=== PATIENT | male | born 1960 | race Caucasian/White ===

== ENCOUNTER 2020-08-08 19:29 | Emergency (ER) | payer BC, SELFPAY ==
[2020-08-08 19:37] VITALS: BP 137/85; PULSE 66; RESP 14; TEMP 36.1; O2SAT 97; BMI 25.7
[2020-08-08] MEDS: TET,DIPH,PERTUSS(ACELL),VAC/PF 0.5 ML SYRINGE IM (20:06)
--- NOTE | 2020-08-08 22:07 | ED.WOUNDLAC ---
HPI - Wound/Laceration General Chief Complaint: Wound/Laceration Stated Complaint: cut left hand Time Seen by Provider: 08/08/20 22:01 Source: patient Mode of arrival: Ambulatory Limitations: no limitations History of Present Illness HPI narrative: Patient is a 60-year-old male who presents with left hand laceration,. He can not get it to stop bleeding he is not on any antiplatelet or anticoagulation medication. It is right between his thumb and index finger. He has no numbness tingling or weakness. He is able to make an okay sign any has good sensation. Onset (ago): hour(s) Location: other (Left hand) Related Data Allergies Allergy/AdvReac Type Severity Reaction Status Date / Time Penicillins Allergy Verified 08/08/20 19:39 Review of Systems Review of Systems Narrative: GENERAL: Denies chills,fever HEENT: Denies throat pain RESPIRATORY: Denies dyspnea, cough, wheezing CARDIOVASCULAR: Denies chest pain, palpitations GASTROINTESTINAL: Denies nausea, vomiting MUSCULOSKELETAL: Denies extremity pain, injury SKIN: Laceration see HPI NEUROLOGIC: Denies weakness, dizziness, headache, numbness 8 point review of systems is negative except for those stated above and HPI Patient History Medical History Patient denies medical problems Social History Smoking Status: Unknown if ever smoked Smoking Status: Unknown if ever smoked alcohol intake frequency: holidays/special occasions only Substance Use Type: does not use Exam Initial Vital Signs Initial Vital Signs: Vital Signs Temperature 97.0 F L 08/08/20 19:37 Pulse Rate 66 08/08/20 19:37 Respiratory Rate 14 08/08/20 19:37 Blood Pressure 137/85 08/08/20 19:37 Pulse Oximetry 97 08/08/20 19:37 GENERAL: Well-appearing, well-nourished and in no acute distress. CARDIOVASCULAR: peripheral pulses in tact, cap refill <2 sec RESPIRATORY: No respiratory distress, speaks in full sentences without difficulty EXTREMITIES: Normal range of motion, no clubbing or edema. Neurovascularly intact Patient able to make okay sign with thumb and pinky sensation between 1st and 2nd finger intact NEUROLOGICAL: Cranial nerves II through XII grossly intact. Normal gait and speech. SKIN: 2 cm laceration left hand between thumb and index finger more on the dorsal side. Procedures Laceration Repair Laceration 1: Site: hand Side (If applicable): left Size (cm): 2 Description: linear Depth: simple, single layer Local Anesthetic: lidocaine 1% Amount of anesthesia used (mL): 2 Pre-repair: wound explored and irrigated extensively Skin layer closed with: nylon Size (cm): 4-0 Number of sutures: 2 Course Orders Ordered: Discontinued Medications Diphtheria/Tetanus/Acell Pertussis (Tet,Diph,Pertuss(Acell),Vac/Pf 0.5 Ml Syringe) 0.5 ml IM .ONCE ONE Stop: 08/08/20 20:01 Last Admin: 08/08/20 20:06 Dose: 0.5 ml Documented by: SHAHZAD Lidocaine HCl (Lidocaine 1% (Pf)) 2 ml SUBCUT NOW ONE Stop: 08/08/20 22:07 Last Admin: 08/08/20 22:21 Dose: 2 ml Documented by: SHAHZAD Vital Signs Vital signs: Vital Signs - 8 hr 08/08/20 19:37 08/08/20 22:26 Temperature 97.0 F L Pulse Rate 66 84 Respiratory Rate 14 20 Blood Pressure 137/85 124/84 Pulse Oximetry 97 99 Discharge Plan Departure Patient Disposition: Home Clinical Impression: Laceration Instructions: DI for Laceration Repair Activity Restrictions/Additional Instructions: 1. Have your suture removed in 5-7 days, you may go to walk-in clinic, return to the ER or call your primary care physician. 2. No soaking in water including dishes, bathtubs, Lakes, swimming pools etc 3. Signs of infection include, but not limited to, increased redness, increased swelling, increased pain, fever and purulent drainage, if the symptoms should arise, you may need an antibiotic and you should have a reevaluation either by your primary care provider or by the emergency department. Referrals: [facility] Resources [Outside]
[2020-08-08] MEDS: LIDOCAINE 1% (PF) 2 ML SUBCUT (22:21)
[2020-08-08 22:26] VITALS: BP 124/84; PULSE 84; RESP 20; O2SAT 99
== END 2020-08-08 22:26 | disposition home or self-care (01) ==
PROVIDERS: Emergency Provider Emergency Medicine
DX: S61.412A Laceration without foreign body of left hand, initial encounter (principal); W26.0XXA Contact with knife, initial encounter
CPT/HCPCS: 12001; 90471; 99283; 90715

== ENCOUNTER → 2024-09-23 13:07 | Outpatient (CLI) | payer BC, SELFPAY ==
--- NOTE | 2024-09-23 13:08 | DI.MRI.S_ITS ---
PROCEDURE: MR SHOULDER RT WO CON INDICATIONS: PAIN IN RT SHOULDER / R/O RTC TEAR TECHNIQUE: Noncontrast oblique coronal T2 fast spin echo with fat saturation, oblique sagittal T1 spin echo and T2 fast spin echo with fat saturation, axial T1 spin echo and T2 fast spin echo with fat saturation through the shoulder. COMPARISON: [facility] [place], CR, XR SHOULDER 2+ VIEWS RIGHT, 09/08/2024, 11:28. FINDINGS: Image quality: Excellent. Bones: The bone marrow signal is normal. There is no acute fracture or dislocation. Acromioclavicular joint: Mild osteoarthritis. There is a type 2 acromion. Glenohumeral joint: There is no significant osteoarthritis. There is no significant joint effusion. Labrum: There is mild blunting of the labrum without a focal tear. Cartilage: There is no significant articular cartilage defect. Subacromial-subdeltoid bursa: There is a small amount of fluid in the subacromial-subdeltoid bursa. Rotator cuff: Superimposed on mild tendinosis, there is a partial width, partial-thickness, articular sided tear of the supraspinatus at the footprint (8/12). The infraspinatus tendon is intact. The subscapularis tendon is intact. The teres minor tendon is intact. Long head of biceps tendon: The long head of the biceps tendon is present within the bicipital groove, although there may have been prior tenodesis given the susceptibility artifact (8/5) adjacent to it. Musculature: Muscle bulk is preserved without evidence of denervation or fatty atrophy. Inferior glenohumeral ligaments/Axillary pouch: The axillary pouch is normal in thickness and signal. Coracoclavicular and coracoacromial ligaments: The coracoclavicular and coracoacromial ligaments are normal. Other: Susceptibility artifact superficial to the acromial head of the deltoid muscle (8/11). IMPRESSION: 1. Susceptibility artifact superficial to the deltoid muscle and long head of the biceps tendon, possibly secondary to prior biceps tenodesis and subacromial decompression. Please correlate with prior surgical history. 2. Mild subacromial-subdeltoid bursitis. 3. Partial width, partial-thickness, articular sided supraspinatus footprint tear, superimposed on mild tendinosis. Dictated by: Valdemar Douglas M.D. on 09/23/2024 at 17:19 Approved by: Valdemar Douglas M.D. on 09/23/2024 at 17:24
== END ==
PROVIDERS: PCP Family Medicine; Referring Provider Orthopaedic Surgery; Visit Provider Orthopaedic Surgery
DX: M75.111 Incomplete rotator cuff tear or rupture of right shoulder, not specified as traumatic (principal); M75.51 Bursitis of right shoulder; M25.511 Pain in right shoulder
CPT/HCPCS: 73221

== ENCOUNTER → 2024-12-05 12:20 | Outpatient (CLI) | payer BC, SELFPAY ==
--- NOTE | 2024-12-05 12:21 | DI.ECHO.S_ITS ---
[facility] [place] +---------+ Hospital : : [address] : : [place] : : [id number] : : Phone: [phone] Echocardiogram Report + + :Name: JOEY ROLLINS V Study Date: 12/05/2024 Height: 64 in : :[facility] ReadingLocation: Weight: 190 lb : : Gender: Male BSA: 1.9 m2 : :: 1960 Age: 64 yrs BP: 142/97 mmHg: :Reason For Study: Murmur : :Ordering Physician: KENNETH, : :BARBARA Oviedo Performed By: Mj Chen : :Referring: BARBARA COOPER : + + Interpretation Summary The left ventricle is normal in size. Left ventricular systolic function is normal. The ejection fraction is estimated to be 60-65%. The right ventricle is normal in size and function. No significant valvular pathology seen. The IVC is of normal diameter and collapses greater than 50% with a sniff. This suggests a low right atrial pressure of 3 mm Hg. The ascending aorta is mildly enlarged. Procedure: A two-dimensional transthoracic echocardiogram with color flow and Doppler was performed. The study quality was technically adequate. There is no prior echocardiogram noted for this patient. The patient was in normal sinus rhythm during the exam. Left Ventricle: The left ventricle is normal in size. Left ventricular wall thickness is mildly increased. Proximal septal thickening is noted. There is no thrombus. A false chord is noted (normal variant). Left ventricular systolic function is normal. The ejection fraction is estimated to be 60-65%. There are no focal wall motion abnormalities. Grade I diastolic dysfunction with normal left atrial pressure. Right Ventricle: The right ventricle is normal in size and function. Atria: The left atrial size is normal. Right atrial size is normal. There is no Doppler evidence for an interatrial shunt. Mitral Valve: The mitral valve leaflets appear to open well. The mitral valve is normal. There is no mitral valve stenosis. There is trace mitral regurgitation. Aortic Valve: The aortic valve is trileaflet. The aortic valve opens well. There is no aortic valve stenosis. No aortic regurgitation is present. Tricuspid Valve: The tricuspid valve leaflets are thin and pliable. There is trace tricuspid regurgitation. Pulmonary artery pressures cannot be estimated because of the lack of a measurable TR jet velocity. Pulmonic Valve: The pulmonic valve is not well seen, but is grossly normal. There is trace pulmonic regurgitation. Great Vessels: The aortic root is normal size. The aortic arch could not be visualized. The ascending aorta is mildly enlarged. The IVC is of normal diameter and collapses greater than 50% with a sniff. This suggests a low right atrial pressure of 3 mm Hg. Pericardium/ Pleura There is no pericardial effusion. MMode/2D Measurements & Calculations LVIDd: 4.0 cm LVOT diam: 2.2 cm LVIDs: 2.6 cm Ao root diam: 3.6 cm FS: 34.7 % asc Aorta Diam: 3.8 cm IVSd: 1.2 cm LVPWd: 1.2 cm LV holm. diameter/BSA (cm/m^2): 2.1 LV sys. diameter/BSA (cm/m^2): 1.4 LA A2 area: 18.6 cm2 RA long axis: 5.5 cm LA A4 area: 17.5 cm2 RA area: 18.6 cm2 LA length (vol): 5.6 cm RA vol: 53.5 ml LA vol: 49.5 ml RA : 27.9 ml/m2 LA vol index: 25.9 ml/m2 IVC diam: 1.7 cm RVD1 (basal): 2.6 cm RVD2 (mid): 2.4 cm TAPSE: 2.7 cm Doppler Measurements & Calculations Ao V2 max: 123.0 cm/sec LVOT Max Lupillo: 100.1 cm/sec Ao V2 mean: 87.8 cm/sec LV V1 max P.0 mmHg Ao max P.1 mmHg LV V1 VTI: 20.6 cm Ao mean P.5 mmHg ALYCE(I,D): 3.2 cm2 Ao V2 VTI: 24.0 cm ALYCE(V,D): 3.0 cm2 sev ratio: 0.86 ALYCE indexed to BSA (cm^2/m^2): 1.7 MV E max lupillo: 51.9 cm/sec PA V2 max: 109.0 cm/sec MV A max lupillo: 69.5 cm/sec PA V2 mean: 75.9 cm/sec MV E/A: 0.75 PA mean P.5 mmHg Med Peak E' Lupillo: 6.8 cm/sec PA pr(Accel): 34.0 mmHg E/E' med: 7.6 Lat Peak E' Lupillo: 7.9 cm/sec E/E' lat: 6.5 E/e' average: 7.1 MV dec time: 0.24 sec SVLVOT): 76.6 ml Reading Physician:[id number] PM
== END ==
LOC: ECHO 12:20
PROVIDERS: PCP Family Medicine; Referring Provider Family Medicine; Visit Provider Family Medicine
DX: R01.1 Cardiac murmur, unspecified (principal); I77.810 Thoracic aortic ectasia
CPT/HCPCS: 93306